=== PATIENT | male | born 1965 | race African-American/Black ===

== ENCOUNTER 2018-01-29 22:17 | Observation (INO) | payer OTHER ==
--- NOTE | 2018-01-29 22:34 | PDOC ---
History of Present Illness - General History Source: Patient, Significant Other Exam Limitations: No Limitations - History of Present Illness Initial Comments: 01/29/18 23:04 The patient is a 52 year old male with a significant PMH of diabetes, hypertension and pancreatic ca who presents to the emergency department with blurry vision since earlier today. The patient reports that he was at home alone today when he experienced a sudden onset of blurry vision. He describes his episode as flashing red lights. The patient reports some associated confusion with his blurry vision. As per girlfriend at bedside, the patient was also experiencing some associated unsteady gait as well. The patient states that his symptoms began with some left eye pain as well as tooth pain. He states that he has a dental surgery appointment in 5 days. The patient also reports some progressive weight loss. He denies any other complaints. He denies any fever, chills, nausea, vomit, diarrhea, constipation or urinary symptoms. He denies any chest pain, shortness of breath, headache and dizziness. The patient denies any other complaints. PCP: Dr. Valdes <Wilmer Mcintosh - Last Filed: 01/29/18 23:53> <Crystal Joseph - Last Filed: 01/30/18 01:01> - General Stated Complaint: EYE PAIN Time Seen by Provider: 01/29/18 22:25 Past History <Wilmer Mcintosh - Last Filed: 01/29/18 23:53> <Crystal Joseph - Last Filed: 01/30/18 01:01> - Past Medical History Allergies/Adverse Reactions: Allergies Allergy/AdvReac Type Severity Reaction Status Date / Time No Known Allergies Allergy Verified 01/29/18 22:36 Review of Systems - Review of Systems Able to Perform ROS?: Yes Comments:: 01/29/18 23:04 GENERAL/CONSTITUTIONAL: No fever or chills. No weakness. HEAD, EYES, EARS, NOSE AND THROAT:(+)blurry vision . No ear pain or discharge. No sore throat. CARDIOVASCULAR: No chest pain or shortness of breath. RESPIRATORY: No cough, wheezing, or hemoptysis. GASTROINTESTINAL: No nausea, vomiting, diarrhea or constipation. GENITOURINARY: No dysuria, frequency, or change in urination. MUSCULOSKELETAL: No joint or muscle swelling or pain. No neck or back pain. SKIN: No rash NEUROLOGIC: (+)confusion. No headache, vertigo, loss of consciousness, or change in strength/sensation. ENDOCRINE: (+)weight loss. No increased thirst. HEMATOLOGIC/LYMPHATIC: No anemia, easy bleeding, or history of blood clots. ALLERGIC/IMMUNOLOGIC: No hives or skin allergy. <Wilmer Mcintosh - Last Filed: 01/29/18 23:53> *Physical Exam - Vital Signs Last Vital Signs Temp Pulse Resp BP Pulse Ox 98.5 F 72 18 165/98 100 01/29/18 22:32 01/29/18 22:32 01/29/18 22:32 01/29/18 22:32 01/29/18 22:32 - Physical Exam Comments: 01/29/18 23:04 GENERAL: Awake, alert, and fully oriented, in no acute distress HEAD: No signs of trauma EYES: PERRLA, EOMI, sclera anicteric, conjunctiva clear ENT: (+) a lot of dental caries and eroded teeth. Auricles normal inspection, hearing grossly normal, nares patent, oropharynx clear without exudates. Moist mucosa NECK: Normal ROM, supple, no lymphadenopathy, JVD, or masses LUNGS: Breath sounds equal, clear to auscultation bilaterally. No wheezes, and no crackles HEART: Regular rate and rhythm, normal S1 and S2, no murmurs, rubs or gallops ABDOMEN: Soft, nontender, normoactive bowel sounds. No guarding, no rebound. No masses EXTREMITIES: Normal range of motion, no edema. No clubbing or cyanosis. No cords, erythema, or tenderness NEUROLOGICAL: Cranial nerves II through XII grossly intact. Normal speech, normal gait SKIN: Warm, Dry, normal turgor, no rashes or lesions noted. <Wilmer Mcintosh - Last Filed: 01/29/18 23:53> ED Treatment Course - LABORATORY CBC & Chemistry Diagram: 01/29/18 23:00 01/29/18 23:00 <Wilmer Mcintosh - Last Filed: 01/29/18 23:53> - LABORATORY CBC & Chemistry Diagram: 01/29/18 23:00 01/29/18 23:00 <Crystal Joseph - Last Filed: 01/30/18 01:01> Medical Decision Making - Medical Decision Making 01/29/18 23:43 Pt has a normal head CT. He will be admitted for uncontrolled DM. <Crystal Joseph - Last Filed: 01/30/18 01:01> *DC/Admit/Observation/Transfer - Attestations Scribe Attestion: 01/29/18 23:04 Documentation prepared by Wilmer Mcintosh, acting as medical records technician for Crystal Joseph MD. <Wilmer Mcintosh - Last Filed: 01/29/18 23:53> - Discharge Dispostion Decision to Admit order: Yes <Crystal Joseph - Last Filed: 01/30/18 01:01> Diagnosis at time of Disposition: TIA (transient ischemic attack), Uncontrolled diabetes mellitus - Discharge Dispostion Condition at time of disposition: Guarded - Referrals Referrals: Ana Valdes MD [Primary Care Provider] - - Patient Instructions - Post Discharge Activity
--- NOTE | 2018-01-29 22:37 | PDOC ---
NIH Stroke Scale - Last Known Well Date/Time & Onset Date Last Known Well: 01/29/18 Time Last Known Well: 09:00 - Initial Evaluation Level of consciousness: Alert Ask patient the month and their age: Answers both correctly Ask patient to open & close eyes; make fist and let go: Obeys both correctly Best gaze (horizontal eye movement): Normal Visual field testing: Partial hemianopia Facial paresis (Show teeth/raise eyebrows/close eyes tight): Normal symmetrical movement Motor Function: Left Arm: Normal Motor Function: Right Arm: Normal (extends arm 90 (or 45) degrees for 10 seconds without drift Motor Function: Left Leg: Normal (extends leg 30 degrees for 5 seconds without drift) Motor Function: Right Leg: Normal (extends leg 30 degrees for 5 seconds without drift) Limb Ataxia: No ataxia Sensory(Use pinprick test arms,legs,trunk,face/side to side): Normal Best language (Describe picture, name items, read sentences): No Aphasia Dysarthria (read several words): Normal articulation Extinction and Inattention: No abnormality - Total Score NIH Stroke Scale Score: 1
[2018-01-29] MEDS ORDERED: INSULIN REGULAR HUMAN 100 UNITS/ML *VIAL ONE (22:43)
[2018-01-29] MEDS ORDERED: SODIUM CHLORIDE 0.9% 500 ML INFUS.BAG IV ONE (23:00)
[2018-01-29] MEDS ORDERED: INSULIN (NOVOLOG) ASPART 100 UNITS/ML 10ML VIAL SQ ONE (23:15)
[2018-01-29 23:16] LABS: BASO % 1.4 % (0-2.0); EOS % 1.8 % (0-4.5); HEMATOCRIT 34.6 % (35.4-49); HEMOGLOBIN 11.6 GM/dL (11.7-16.9); LYMPH % 33.9 % (8-40); MCH 28.9 pg (25.7-33.7); MCHC 33.4 g/dl (32.0-35.9); MEAN CELL VOLUME 86.5 fl (80-96); MONO % 6.7 % (3.8-10.2); NEUT % 56.2 % (42.8-82.8); PLATELET COUNT 299 K/MM3 (134-434); RDW 13.6 % (11.9-15.9); WHITE BLOOD COUNT 6.3 K/mm3 (4.0-10.0)
[2018-01-29 23:30] LABS: INR 0.96 (0.83-1.09); PROTHROMBIN TIME (PATIENT) 10.9 SEC (9.7-13.0)
[2018-01-29 23:50] LABS: ALBUMIN 3.6 g/dl (3.4-5.0); ALK PHOS 112 U/L (45-117); ANION GAP 8 MMOL/L (8-16); BILIRUBIN,TOTAL 0.4 mg/dL (0.2-1); BLOOD UREA NITROGEN 4 mg/dL (7-18); CALCIUM 8.6 mg/dL (8.5-10.1); CHLORIDE 96 mmol/L (98-107); CO2 27 mmol/L (21-32); CREATININE 0.8 mg/dL (0.55-1.3); POTASSIUM 3.6 mmol/L (3.5-5.1); SGOT/AST 16 U/L (15-37); SGPT/ALT 19 U/L (13-61); SODIUM 130 mmol/L (136-145); TOT PROT 6.7 g/dl (6.4-8.2)
[2018-01-29 23:54] LABS: GLUCOSE,RANDOM 406 mg/dL (74-106)
[2018-01-29] MEDS ORDERED: POTASSIUM CHLORIDE TABS 20 MEQ TABLET.ER (FP) PO ONE (23:56)
[2018-01-29] MEDS ORDERED: MAGNESIUM SULF 50% (8.12 MEQ/2 ML-1 GM VIAL) IVPB ONE (23:57)
[2018-01-30] MEDS ORDERED: SODIUM CHLORIDE 0.9% 500 ML INFUS.BAG IV ONE (00:01)
[2018-01-30] MEDS ORDERED: MAGNESIUM 1GM/D5W - 2 GM/200 ML IVPB IVPB ONE (00:11)
[2018-01-30] MEDS ORDERED: POTASSIUM CHLORIDE TABS 20 MEQ TABLET.ER (FP) PO ONE (00:11)
--- NOTE | 2018-01-30 01:04 | PN ---
Teaching Attending Note Name of Resident: Harshil Adan ATTENDING PHYSICIAN STATEMENT I saw and evaluated the patient. I reviewed the resident's note and discussed the case with the resident. I agree with the resident's findings and plan as documented. SUBJECTIVE: Patient is a 52 year old man with a significant PMH of NIDDM, HTN and pancreatic cancer who presents to the ER with complaint of blurry vision since earlier today. Says he was at home alone today when he experienced a sudden onset of blurry vision. He describes his episode as flashing red lights. There was associated confusion with his blurry vision. As per girlfriend at bedside, the patient was also experiencing some associated unsteady gait as well. The patient states that his symptoms began with some left eye pain as well as tooth pain. He states that he has a dental surgery appointment in 5 days. The patient also reports some progressive unintended weight loss. He denies any fever, chills, nausea, vomit, diarrhea, constipation, chest pain, shortness of breath, headache or dizziness. OBJECTIVE: Alert and very weak Vital Signs Period Temp Pulse Resp BP Sys/Zepeda Pulse Ox Last 24 Hr 98.4 F-98.5 F 72-81 16-18 165-165/98-98 100-100 HEENT: No Jaundice, eye redness or discharge, PERRLA, bilateral hemianopsia, cataracts, decreased vision; fundi not visualized; Poor dentition. Normocephalic , atraumatic. External ears are normal and hearing is grossly intact. No nasal discharge. Neck: Supple, nontender. No palpable adenopathy or thyromegaly. No JVD Chest: Good effort. Clear to auscultation and percussion. Heart: Regular. No S3, rub or murmur Abdomen: Not distended, soft, nontender and no HSM. No rebound or guarding. Normoactive bowel sounds. Ext: Peripheral pulses intact. No leg edema. Skin: Warm and dry. No petechiae, rash or ecchymosis. Neuro: Alert. Oriented x3. CN 2-12 grossly intact. Sensation grossly intact in all four extremities and DTR are symmetric. Slow gait. Plantar reflexes are flexor. Abnormal Lab Results 01/29/18 01/29/18 23:00 23:00 Hgb 11.6 L Hct 34.6 L Sodium 130 L Chloride 96 L BUN 4 L Random Glucose 406 H* ASSESSMENT AND PLAN: 1. TIA - Though his visual symptoms may be due to diabetic retinopathy, we are concerned about arterial occlusion or retinal pathology. Will consult opthalmology stat. Get brain MRI, carotid doppler, ECHO, fasting lipids, swallow evaluation, PT consult, fall precautions and implement permissive hypertension pending brain MRI. Getting Aspirin and Statin. Neurology consult. Hyponatremia most likely due to hyperglycemia. Will correct hyperglycemia and restrict free water intake. 2. Uncontrolled DM - For now, we will hold the home diabetes drugs and implement sliding scale insulin regimen. Provide comprehensive diabetes care with patient teaching and counseling about the importance of euglycemia, eye care and foot care. 3. Anemia - Etiology unclear. Will do basic anemia work up including serial stool guaiacs, reticulocyte count and iron studies. 4. Tobacco Use We will provide patient all the necessary assistance to facilitate smoking cessation and prescribe Nicotine patch. 5. DVT prophylaxis - Lovenox 40 mg SQ q 24 hours. 6. Advance directives - Full code
--- NOTE | 2018-01-30 02:20 | HP ---
CHIEF COMPLAINT: L eye pain with vision changes PCP: Dr. Ana Valdes HISTORY OF PRESENT ILLNESS: Pt is a 52 M with PMH sig for HTN, IDDM (poorly controlled), diabetic neuropathy , iron-deficiency anemia (not on therapy), and pancreatic CA (dx in 2013, got chemo and radiation) who presented to ED with complaint of vision changes and headache. Pt states that 3 days ago, he began experiencing blurry vision in both eyes as well as flashing lights in his left eye only. These changes came on rather suddenly and have persisted constantly since. Pt also describes a R headache that came on subsequent to the left eye visual changes. The headache extends upward from the right judaism and includes the R eye. Pt's fiancee was present at bedside and describes an event yesterday afternoon during which the patient became confused while standing in his kitchen. He was apparently unable to find his way out of the kitchen. The patient states he remembers this and was confused about where he was at that time. Presently, pt continues to have vision changes as well as a headache. He is no longer confused. No other complaints. Note: meds reviewed with patient. ER course was notable for: (1) Hb 11, Na 130, glc 406 (2) Head CT neg (3) Recent Travel: denies PAST MEDICAL HISTORY: HTN, IDDM, peripheral neuropathy, Fe deficiency anemia, pancreatic CA PAST SURGICAL HISTORY: L ?quadriceps tendon repair Social History: Smoking: current smoker. 3 cig/day since 29 y/o Alcohol: social Drugs: denies Family History: leukemia in mother, unknown cancer in father, brain aneurysm and CABG x2 in father Allergies No Known Allergies Allergy (Verified 01/30/18 01:01) HOME MEDICATIONS: Home Medication List Medication Instructions Recorded Confirmed Type Captopril 12.5 mg PO DAILY 01/30/18 01/30/18 History Gabapentin 900 mg PO DAILY 01/30/18 01/30/18 History Insulin (LOG) Aspart [NovoLOG -] 10 unit SQ ACHS 01/30/18 01/30/18 History Insulin Glargine,Hum.rec.anlog 28 unit SQ HS 01/30/18 01/30/18 History [Lantus (10mL VIAL) -] Lipase/Protease/Amylase [Leopoldo Hairston 1 cap PO DAILY 01/30/18 01/30/18 History 24,000 Units Capsule] Quetiapine Fumarate [Seroquel -] 250 mg PO DAILY 01/30/18 01/30/18 History REVIEW OF SYSTEMS CONSTITUTIONAL: Absent: fever, chills, diaphoresis, generalized weakness, malaise, loss of appetite, weight change HEENT: eye pain, visual changes Absent: rhinorrhea, nasal congestion, throat pain, throat swelling, difficulty swallowing, mouth swelling, ear pain, CARDIOVASCULAR: Absent: chest pain, syncope, palpitations, irregular heart rate, lightheadedness , peripheral edema RESPIRATORY: Absent: cough, shortness of breath, dyspnea with exertion, orthopnea, wheezing, stridor, hemoptysis GASTROINTESTINAL: Absent: abdominal pain, abdominal distension, nausea, vomiting, diarrhea, constipation, melena, hematochezia GENITOURINARY: Absent: dysuria, frequency, urgency, hesitancy, hematuria, flank pain, genital pain MUSCULOSKELETAL: Absent: myalgia, arthralgia, joint swelling, back pain, neck pain SKIN: Absent: rash, itching, pallor HEMATOLOGIC/IMMUNOLOGIC: Absent: easy bleeding, easy bruising, lymphadenopathy, frequent infections ENDOCRINE: Absent: unexplained weight gain, unexplained weight loss, heat intolerance, cold intolerance NEUROLOGIC: mental status changes Absent: headache, focal weakness or paresthesias, dizziness, unsteady gait, seizure, , bladder or bowel incontinence PSYCHIATRIC: Absent: anxiety, depression, suicidal or homicidal ideation, hallucinations. PHYSICAL EXAMINATION Vital Signs - 24 hr 01/29/18 01/29/18 22:32 23:11 Temperature 98.5 F 98.4 F Pulse Rate 72 Pulse Rate [ 81 Left Radial] Respiratory 18 16 Rate Blood Pressure 165/98 Blood Pressure 165/98 [Right Arm] O2 Sat by Pulse 100 100 Oximetry (%) GENERAL: Awake, alert, and fully oriented, in no acute distress. HEAD: Normal with no signs of trauma. EYES: Pupils equal, round and reactive to light, extraocular movements intact, sclera anicteric, conjunctiva clear. No lid lag. decreased visual acuity from normal. Homonomous L hemianopsia ?without macular sparing. Ophthomologic exam unrevealing. No red reflex. Retina not visualized. EARS, NOSE, THROAT: Ears normal, nares patent, oropharynx clear without exudates. Moist mucous membranes. NECK: Normal range of motion, supple without lymphadenopathy, JVD, or masses. LUNGS: Breath sounds equal, clear to auscultation bilaterally. No wheezes, and no crackles. No accessory muscle use. HEART: Regular rate and rhythm, normal S1 and S2 without murmur, rub or gallop. ABDOMEN: Soft, nontender, not distended, normoactive bowel sounds, no guarding, no rebound, no masses. No hepatomegaly or splenomegaly. MUSCULOSKELETAL: Normal range of motion at all joints. No bony deformities or tenderness. No CVA tenderness. UPPER EXTREMITIES: 2+ pulses, warm, well-perfused. No cyanosis. No clubbing. No peripheral edema. LOWER EXTREMITIES: 2+ pulses, warm, well-perfused. No calf tenderness. No peripheral edema. NEUROLOGICAL: decreased vision. Cranial nerves II-XII intact. Normal speech. Normal gait. PSYCHIATRIC: Cooperative. Good eye contact. Appropriate mood and affect. SKIN: Warm, dry, normal turgor, no rashes or lesions noted, normal capillary refill. Laboratory Results - last 24 hr 01/29/18 01/29/18 01/29/18 23:00 23:00 23:00 WBC 6.3 RBC 4.00 Hgb 11.6 L Hct 34.6 L MCV 86.5 MCH 28.9 MCHC 33.4 RDW 13.6 Plt Count 299 MPV 8.0 Absolute Neuts (auto) 3.6 Neutrophils % 56.2 Lymphocytes % 33.9 Monocytes % 6.7 Eosinophils % 1.8 Basophils % 1.4 Nucleated RBC % 0 PT with INR INR PTT (Actin FS) 29.5 Sodium 130 L Potassium 3.6 Chloride 96 L Carbon Dioxide 27 Anion Gap 8 BUN 4 L Creatinine 0.8 Creat Clearance w eGFR > 60 POC Glucometer Random Glucose 406 H* Calcium 8.6 Total Bilirubin 0.4 AST 16 ALT 19 Alkaline Phosphatase 112 Total Protein 6.7 Albumin 3.6 Acetone, Qual Blood Type Antibody Screen 01/29/18 01/29/18 01/29/18 23:00 23:00 23:00 WBC RBC Hgb Hct MCV MCH MCHC RDW Plt Count MPV Absolute Neuts (auto) Neutrophils % Lymphocytes % Monocytes % Eosinophils % Basophils % Nucleated RBC % PT with INR 10.90 INR 0.96 PTT (Actin FS) Sodium Potassium Chloride Carbon Dioxide Anion Gap BUN Creatinine Creat Clearance w eGFR POC Glucometer Random Glucose Calcium Total Bilirubin AST ALT Alkaline Phosphatase Total Protein Albumin Acetone, Qual Positive small 1+ Blood Type O POSITIVE Antibody Screen Negative 01/30/18 00:19 WBC RBC Hgb Hct MCV MCH MCHC RDW Plt Count MPV Absolute Neuts (auto) Neutrophils % Lymphocytes % Monocytes % Eosinophils % Basophils % Nucleated RBC % PT with INR INR PTT (Actin FS) Sodium Potassium Chloride Carbon Dioxide Anion Gap BUN Creatinine Creat Clearance w eGFR POC Glucometer [phone] Random Glucose Calcium Total Bilirubin AST ALT Alkaline Phosphatase Total Protein Albumin Acetone, Qual Blood Type Antibody Screen ASSESSMENT/PLAN: Pt is a 52 y/o M with hx poorly controlled IDDM, HTN who presents to ED with complaint of visual changes and headache with episode of confusion. #TIA/CVA r/o -persistent symptoms including homonomous hemianopsia -Head CT neg -Brain MRI (pt will require mild sedation for study) -carotid U/S -lipids -neuro consult -ophthomology consult #IDDM -ISS -BGM #HTN -resume captopril #Neuropathy -resume gabapenting #Hx pancreatic CA -c/w home creon #FEN -NS 75 -hyponatremia -NPO until speech and swallow eval #PPx -lovenox #Dispo -tele obs Rah Kingsley MD PGY-2 IM Visit type - Emergency Visit Emergency Visit: Yes ED Registration Date: 01/30/18 Care time: The patient presented to the Emergency Department on the above date and was hospitalized for further evaluation of their emergent condition. - New Patient This patient is new to me today: Yes Date on this admission: 01/30/18 - Critical Care Critical Care patient: No Hospitalist Screening - Colonoscopy Questionnaire Colonoscopy Questionnaire: Colonoscopy Questionnaire - Patient: 50 - 75 years old and never had a screening colonoscopy: Unknown History of colon or rectal polyps, or CA: Unknown History of IBD, Crohn's disease or UC: Unknown History of abdominal radiation therapy as a child: Unknown - Relative: 1 with colon or rectal CA, or polyps at age 60 or younger: Unknown Colon or rectal CA diagnosed at age 45 or younger: Unknown Multiple relatives with colon or rectal CA: Unknown - Outcome: Screening Result: Negative Screen
[2018-01-30] MEDS: SODIUM CHLORIDE 1,000 ML IV SCH (02:55)
[2018-01-30] MEDS ORDERED: LORazepam 2 MG/ML SDV VIAL IVPUSH ONE (03:03)
[2018-01-30] MEDS: INSULIN SLIDING SCALE (NOVOLOG) 1 VIAL SQ SCH ×4 (07:46→23:15)
[2018-01-30 08:13] LABS: EOS % 2.2 % (0-4.5); HEMATOCRIT 32.8 % (35.4-49); HEMOGLOBIN 10.8 GM/dL (11.7-16.9); LYMPH % 44.1 % (8-40); MCH 28.4 pg (25.7-33.7); MEAN CELL VOLUME 86.1 fl (80-96); MEAN PLT VOLUME 7.8 fl (7.5-11.1); MONO % 7.9 % (3.8-10.2); NEUT % 44.8 % (42.8-82.8); PLATELET COUNT 283 K/MM3 (134-434); RDW 13.5 % (11.9-15.9); WHITE BLOOD COUNT 6.4 K/mm3 (4.0-10.0)
--- NOTE | 2018-01-30 08:39 | PN ---
Progress Note (short form) - Note Progress Note: Unable to see clearly - both eyes- flashes of light Vital Signs - 24 hr 01/29/18 01/29/18 01/30/18 22:32 23:11 02:56 Temperature 98.5 F 98.4 F 98.2 F Pulse Rate 72 Pulse Rate [ 81 70 Left Radial] Pulse Rate [ Right side Sitting] Pulse Rate [ Right side Standing] Pulse Rate [ Right side Supine] Respiratory 18 16 16 Rate Blood Pressure 165/98 Blood Pressure 165/98 135/94 [Right Arm] Blood Pressure [Right side Sitting] Blood Pressure [Right side Standing] Blood Pressure [Right side Supine] O2 Sat by Pulse 100 100 100 Oximetry (%) 01/30/18 01/30/18 01/30/18 03:10 03:11 05:44 Temperature Pulse Rate Pulse Rate [ Left Radial] Pulse Rate [ 81 Right side Sitting] Pulse Rate [ 87 Right side Standing] Pulse Rate [ 77 Right side Supine] Respiratory 16 Rate Blood Pressure Blood Pressure [Right Arm] Blood Pressure 131/100 [Right side Sitting] Blood Pressure 120/86 [Right side Standing] Blood Pressure 134/103 [Right side Supine] O2 Sat by Pulse 97 Oximetry (%) 01/30/18 06:22 Temperature 98.3 F Pulse Rate 66 Pulse Rate [ Left Radial] Pulse Rate [ Right side Sitting] Pulse Rate [ Right side Standing] Pulse Rate [ Right side Supine] Respiratory 16 Rate Blood Pressure 128/85 Blood Pressure [Right Arm] Blood Pressure [Right side Sitting] Blood Pressure [Right side Standing] Blood Pressure [Right side Supine] O2 Sat by Pulse Oximetry (%) Current Medications Generic Name Dose Route Start Last Admin Trade Name Erwinq PRN Reason Stop Dose Admin Aspirin 325 mg 01/30/18 10:00 Ecotrin - PO DAILY SANTANA Enoxaparin Sodium 40 mg 01/30/18 10:00 Lovenox - SQ DAILY SANTANA Gabapentin 900 mg 01/30/18 10:00 Neurontin - PO DAILY [facility] Sodium Chloride 1,000 mls @ 75 mls/hr 01/30/18 02:30 01/30/18 02:55 Normal Saline - IV 75 mls/hr ASDIR SANTANA Administration Insulin Aspart 1 vial 01/30/18 07:00 01/30/18 07:46 Novolog Vial Sliding Scale - SQ Not Given ACHS [facility] Protocol Lisinopril 5 mg 01/30/18 10:00 Prinivil PO DAILY [facility] Non-Formulary Medication 1 cap 01/30/18 10:00 Lipase/Protease/Amylase [Leopoldo Dr 24,000 Units Capsule] PO DAILY [facility] Quetiapine Fumarate 200 mg/ 250 mg 01/30/18 10:00 Quetiapine Fumarate 50 mg PO DAILY [facility] Laboratory Results - last 24 hr 01/29/18 01/29/18 01/29/18 23:00 23:00 23:00 WBC 6.3 RBC 4.00 Hgb 11.6 L Hct 34.6 L MCV 86.5 MCH 28.9 MCHC 33.4 RDW 13.6 Plt Count 299 MPV 8.0 Absolute Neuts (auto) 3.6 Neutrophils % 56.2 Lymphocytes % 33.9 Monocytes % 6.7 Eosinophils % 1.8 Basophils % 1.4 Nucleated RBC % 0 PT with INR INR PTT (Actin FS) 29.5 Sodium 130 L Potassium 3.6 Chloride 96 L Carbon Dioxide 27 Anion Gap 8 BUN 4 L Creatinine 0.8 Creat Clearance w eGFR > 60 POC Glucometer Random Glucose 406 H* Calcium 8.6 Total Bilirubin 0.4 AST 16 ALT 19 Alkaline Phosphatase 112 Total Protein 6.7 Albumin 3.6 Acetone, Qual Blood Type Antibody Screen 01/29/18 01/29/18 01/29/18 23:00 23:00 23:00 WBC RBC Hgb Hct MCV MCH MCHC RDW Plt Count MPV Absolute Neuts (auto) Neutrophils % Lymphocytes % Monocytes % Eosinophils % Basophils % Nucleated RBC % PT with INR 10.90 INR 0.96 PTT (Actin FS) Sodium Potassium Chloride Carbon Dioxide Anion Gap BUN Creatinine Creat Clearance w eGFR POC Glucometer Random Glucose Calcium Total Bilirubin AST ALT Alkaline Phosphatase Total Protein Albumin Acetone, Qual Positive small 1+ Blood Type O POSITIVE Antibody Screen Negative 01/30/18 01/30/18 01/30/18 00:19 05:50 07:36 WBC 6.4 RBC 3.80 L Hgb 10.8 L Hct 32.8 L MCV 86.1 MCH 28.4 MCHC 33.0 RDW 13.5 Plt Count 283 MPV 7.8 Absolute Neuts (auto) 2.8 Neutrophils % 44.8 D Lymphocytes % 44.1 H D Monocytes % 7.9 Eosinophils % 2.2 Basophils % 1.0 Nucleated RBC % 0 PT with INR INR PTT (Actin FS) Sodium Potassium Chloride Carbon Dioxide Anion Gap BUN Creatinine Creat Clearance w eGFR POC Glucometer [phone] Random Glucose Calcium Total Bilirubin AST ALT Alkaline Phosphatase Total Protein Albumin Acetone, Qual Blood Type Antibody Screen S1 S2 RRR Lungs clear Abd- soft, NT No edema AAOx3, moves all extremities PLAN For MRI today , carotid doppler Neurology eval Check A1C may resume diet R/O Optic Neuritis Hospitalist spoke with Contact Center Engineer - who recommended outpt follow up, no emergent interventions at this time Problem List - Problems (1) Pancreatic cancer Code(s): C25.9 - MALIGNANT NEOPLASM OF PANCREAS, UNSPECIFIED (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
[2018-01-30] MEDS ORDERED: diazePAM 5 MG TABLET PO ONE ×2 (08:40→14:15)
[2018-01-30 08:42] LABS: ALBUMIN 3.1 g/dl (3.4-5.0); ALK PHOS 104 U/L (45-117); ANION GAP 9 MMOL/L (8-16); BILIRUBIN,TOTAL 0.2 mg/dL (0.2-1); BLOOD UREA NITROGEN 3 mg/dL (7-18); CALCIUM 8.2 mg/dL (8.5-10.1); CHLORIDE 103 mmol/L (98-107); CO2 25 mmol/L (21-32); CREATININE 0.6 mg/dL (0.55-1.3); MAGNESIUM 1.9 mg/dL (1.8-2.4); PHOSPHOROUS 2.6 mg/dL (2.5-4.9); POTASSIUM 3.7 mmol/L (3.5-5.1); SGOT/AST 36 U/L (15-37); SGPT/ALT 20 U/L (13-61); SODIUM 138 mmol/L (136-145); TOT PROT 5.7 g/dl (6.4-8.2)
[2018-01-30 08:52] LABS: GLUCOSE,RANDOM 397 mg/dL (74-106)
[2018-01-30 09:06] LABS: INR 0.98 (0.83-1.09); PROTHROMBIN TIME (PATIENT) 11.1 SEC (9.7-13.0)
[2018-01-30] MEDS ORDERED: QUEtiapine FUMARATE 200 MG TABLET PO SCH (10:00)
[2018-01-30] MEDS ORDERED: PATIENT'S OWN MEDICATION (NON-FORMULARY) (Lipase/Protease/Amylase [Creon Dr 24,000 Units C PO SCH (10:00)
[2018-01-30] MEDS: ENOXAPARIN NA (PORCINE) 40 MG/0.4 ML DISP.SYRIN SQ SCH (10:42)
[2018-01-30] MEDS: GABAPENTIN 300 MG CAPSULE (FP) PO SCH (10:43)
[2018-01-30] MEDS: QUETIAPINE FUMARATE 200 MG, QUETIAPINE FUMARATE 50 MG PO SCH (10:43)
[2018-01-30] MEDS: LISINOPRIL 5 MG TABLET (FP) PO SCH (10:43)
[2018-01-30] MEDS: ASPIRIN 325 MG ENTERIC COATED TABLET (FP) PO SCH (10:45)
--- NOTE | 2018-01-30 12:22 | CON.NEURO ---
Consult Consult Specialty:: Pérez Referred by:: ED - History of Present Illness History of Present Illness: 52 years old man with PMH HTN, IDDM (poorly controlled), diabetic neuropathy, iron-deficiency anemia (not on therapy), and pancreatic CA (dx in 2013, got chemo and radiation) presented with blurry vision I saw the patient on liana tele No fall no eye trauma Complaints of sever eye pain No symptoms on liana left eye - History Source History Provided By: Patient, Medical Record Limitations to Obtaining History: No Limitations - Smoking History Smoking history: Current every day smoker Have you smoked in the past 12 months: Yes Home Medications - Allergies Allergies/Adverse Reactions: Allergies Allergy/AdvReac Type Severity Reaction Status Date / Time No Known Allergies Allergy Verified 01/30/18 01:01 - Home Medications Home Medications: Ambulatory Orders Captopril 12.5 mg PO DAILY 01/30/18 Gabapentin 900 mg PO DAILY 01/30/18 Insulin (LOG) Aspart [NovoLOG -] 10 unit SQ ACHS 01/30/18 Insulin Glargine,Hum.rec.anlog [Lantus (10mL VIAL) -] 28 unit SQ HS 01/30/18 Lipase/Protease/Amylase [Leopoldo Hairston 24,000 Units Capsule] 1 cap PO DAILY 01/30/18 Quetiapine Fumarate [Seroquel -] 250 mg PO DAILY 01/30/18 Physical Exam-Neuro Vital Signs: Vital Signs Temperature 98.4 F 01/30/18 10:00 Pulse Rate 72 01/30/18 10:00 Respiratory Rate 16 01/30/18 10:00 Blood Pressure 138/73 01/30/18 10:00 O2 Sat by Pulse Oximetry (%) 97 01/30/18 05:44 Labs: CBC, BMP 01/30/18 07:36 01/30/18 07:36 INR, PTT INR 0.98 (0.83-1.09) 01/30/18 07:36 - Neuro Exam Level Of Consciousness: Yes: Oriented to Person, Oriented to Place, Oriented to Time Eyes: Yes: PERRLA Speech: WNL Dominant Hand: Right Cranial Nerves II-XII Intact: Yes Gag: Present DTR's: 1+ Left Bicep, 1+ Right Bicep, 1+ Right Tricep, 1+ Left Brachioradialis Response to light touch: Normal Response to pain prick: Normal Response to temperature: Normal Response to vibration: Normal Motor Strength: 3/5: Left Arm, Right Arm, Left Leg, Right Leg Imaging - Results Cat Scan: Image Reviewed Problem List - Problems (1) Visual changes Assessment/Plan: Rule out Optic Neuritis 1. MRI of liana brain and ON 2. Iv Fluids 3. ESR 4. CRP 5. Optho consult Code(s): H53.9 - UNSPECIFIED VISUAL DISTURBANCE
[2018-01-30 12:59] LABS: CHOLESTEROL 97 mg/dL (50-200); HDL CHOLESTEROL 57 mg/dL (40-60); TRIGLYCERIDES 121 mg/dL (0-150)
[2018-01-30] MEDS: ACETAMINOPHEN 325 MG TABLET (FP) PO PRN (17:39)
[2018-01-30] MEDS ORDERED: PT OWN MED DRAWER 7, Y5N ONE (19:36)
[2018-01-31] MEDS: SODIUM CHLORIDE 1,000 ML IV SCH (05:53)
[2018-01-31] MEDS: INSULIN SLIDING SCALE (NOVOLOG) 1 VIAL SQ SCH ×3 (06:23→16:51)
[2018-01-31] MEDS ORDERED: INSULIN (LEVEMIR) 100 UNITS/ML UNITS SQ SCH ×3 (07:00→11:38)
[2018-01-31] MEDS ORDERED: PT OWN MED DRAWER 7, Y5N ONE (08:53)
[2018-01-31] MEDS: GABAPENTIN 300 MG CAPSULE (FP) PO SCH (09:15)
[2018-01-31] MEDS: ENOXAPARIN NA (PORCINE) 40 MG/0.4 ML DISP.SYRIN SQ SCH (09:15)
[2018-01-31] MEDS: LISINOPRIL 5 MG TABLET (FP) PO SCH (09:16)
[2018-01-31] MEDS: ASPIRIN 325 MG ENTERIC COATED TABLET (FP) PO SCH (09:16)
[2018-01-31] MEDS: QUETIAPINE FUMARATE 200 MG, QUETIAPINE FUMARATE 50 MG PO SCH (09:16)
--- NOTE | 2018-01-31 11:16 | PN ---
Progress Note (short form) - Note Progress Note: Unable to see clearly - both eyes- flashes of light no headaches Vital Signs - 24 hr 01/30/18 01/31/18 01/31/18 22:00 01:20 02:00 Temperature 98.2 F 98.8 F Pulse Rate 78 79 Respiratory 18 18 20 Rate Blood Pressure 167/88 127/72 O2 Sat by Pulse 97 Oximetry (%) 01/31/18 01/31/18 01/31/18 06:00 09:21 10:00 Temperature 98.0 F 98.5 F Pulse Rate 67 75 Respiratory 20 19 19 Rate Blood Pressure 165/96 138/89 O2 Sat by Pulse 99 Oximetry (%) Current Medications Generic Name Dose Route Start Last Admin Trade Name Freq PRN Reason Stop Dose Admin Acetaminophen 650 mg 01/30/18 14:13 01/30/18 17:39 Tylenol - PO 650 mg Q6H PRN Administration PAIN GREATER THAN 5 Aspirin 81 mg 01/31/18 11:38 Ecotrin - PO DAILY [facility] Enoxaparin Sodium 40 mg 01/30/18 10:00 01/31/18 09:15 Lovenox - SQ 40 mg DAILY [facility] Administration Gabapentin 900 mg 01/30/18 10:00 01/31/18 09:15 Neurontin - PO 900 mg DAILY [facility] Administration Insulin Aspart 1 vial 01/31/18 22:00 Novolog Vial Sliding Scale - SQ HS [facility] Protocol Insulin Aspart 1 vial 01/31/18 16:30 Novolog Vial Sliding Scale - SQ TIDAC [facility] Protocol Insulin Detemir 18 units 02/01/18 07:00 Levemir Vial SQ 0700 [facility] Lisinopril 5 mg 01/30/18 10:00 01/31/18 09:16 Prinivil PO 5 mg DAILY [facility] Administration Non-Formulary Medication 1 cap 01/30/18 10:00 Lipase/Protease/Amylase [Leopoldo Hairston 24,000 Units Capsule] PO DAILY [facility] Quetiapine Fumarate 200 mg/ 250 mg 01/30/18 10:00 01/31/18 09:16 Quetiapine Fumarate 50 mg PO 250 mg DAILY [facility] Administration Laboratory Results - last 24 hr 01/30/18 01/30/18 01/30/18 12:00 16:10 22:46 POC Glucometer 283 382 Hemoglobin A1c % 15.7 H 01/31/18 01/31/18 05:43 11:34 POC Glucometer 359 222 Hemoglobin A1c % S1 S2 RRR Lungs clear Abd- soft, NT No edema AAOx3, moves all extremities PLAN MRI - no infarcts Carotid doppler- negative for stenosis Neurology eval noted will consult Endocrinology control blood sugars A1C-15 R/O Optic Neuritis Hospitalist spoke with [employer] Notes Administrator - who recommended outpt follow up, no emergent interventions at this time increase Lisinopril for better BP control dc planning
[2018-01-31] MEDS ORDERED: ASPIRIN 325 MG ENTERIC COATED TABLET (FP) PO SCH (11:38)
--- NOTE | 2018-01-31 14:29 | CONSULT ---
Consult Consult Specialty:: Endocrinology Referred by:: Dr Rebecca Adorno Reason for Consultation:: Hyperglycemia - History of Present Illness Chief Complaint: Blurred vision History of Present Illness: This is a 52 M with h/o HTN, DM since 2010, on Insulin since then, diabetic neuropathy, iron-deficiency anemia (not on therapy), and pancreatic CA (dx in 2013, got chemo and radiation) who presented to ED with complaint of vision changes and headache. Pt states that 3 days ago, he began experiencing blurry vision in both eyes as well as flashing lights in his left eye only. As per yenni the patient became confused while standing in his kitchen a day before admission. He was apparently unable to find his way out of the kitchen. Pt found to be hyperglycemic and referred management. FS at home 200s a per pt. Has occasional hypoglycemia. Month before last he was hospitalized for hypoglycemia. Pt doesn't know name of hospital he was taken to. Has burning of feet off and on. No family h/o DM. Takes Lantus 28 units daily and Humalog 10 units TID as per pt. - History Source History Provided By: Patient, Medical Record Limitations to Obtaining History: Poor Historian - Past Medical History Endocrine: Yes: Diabetes Mellitus - Smoking History Smoking history: Current every day smoker Have you smoked in the past 12 months: Yes Home Medications - Allergies Allergies/Adverse Reactions: Allergies Allergy/AdvReac Type Severity Reaction Status Date / Time No Known Allergies Allergy Verified 01/30/18 01:01 - Home Medications Home Medications: Ambulatory Orders Captopril 12.5 mg PO DAILY 01/30/18 Gabapentin 900 mg PO DAILY 01/30/18 Insulin (LOG) Aspart [NovoLOG -] 10 unit SQ ACHS 01/30/18 Insulin Glargine,Hum.rec.anlog [Lantus (10mL VIAL) -] 28 unit SQ HS 01/30/18 Lipase/Protease/Amylase [Leopoldo Hairston 24,000 Units Capsule] 1 cap PO DAILY 01/30/18 Quetiapine Fumarate [Seroquel -] 250 mg PO DAILY 01/30/18 Family Disease History - Family Disease History Other Family History: No family h/o DM Review of Systems - Review of Systems Constitutional: reports: No Symptoms Eyes: reports: Blurred Vision HENT: reports: No Symptoms Neck: reports: No Symptoms Cardiovascular: reports: No Symptoms Respiratory: reports: No Symptoms Gastrointestinal: reports: No Symptoms Genitourinary: reports: No Symptoms Musculoskeletal: reports: No Symptoms Integumentary: reports: No Symptoms Neurological: reports: No Symptoms Physical Exam Vital Signs: Vital Signs Temperature 98.5 F 01/31/18 09:21 Pulse Rate 75 01/31/18 09:21 Respiratory Rate 19 01/31/18 10:00 Blood Pressure 138/89 01/31/18 09:21 O2 Sat by Pulse Oximetry (%) 99 01/31/18 10:00 Constitutional: Yes: No Distress, Calm Eyes: Yes: Conjunctiva Clear, EOM Intact HENT: Yes: Atraumatic, Normocephalic Neck: Yes: Supple, Trachea Midline Cardiovascular: Yes: Regular Rate and Rhythm Respiratory: Yes: Regular, CTA Bilaterally Gastrointestinal: Yes: Normal Bowel Sounds, Soft Extremities: Yes: WNL Edema: No Neurological: Yes: Alert, Oriented Labs: CBC, BMP 01/30/18 07:36 01/30/18 07:36 Imaging - Results Cat Scan: Report Reviewed (No CT evidence for intracranial hemorrhage) MRI: Report Reviewed (No hemorrhage) Assessment/Plan AP: ?TIA/CVA DM uncontrolled: ?type 1 in view of h/o pancreatic Ca HTN Neuropathy H/O Pancreatic Ca: S/P Chemo and RT, No surgery Nutrition consult Discussed need to control diet. No snacking between meals unless blood sugar is low or he is symptomatic for low blood sugar. BGM QACHS Lantus 20 units daily.Pt says he was taking 26 units daily at HS Got 16 units today, will see how does on the dose. Levemir 18 units in the morning starting tomorrow Will adjust dose as necessary. Novolog SS coverage Will f/u
--- NOTE | 2018-01-31 20:23 | PN ---
Progress Note, Physician History of Present Illness: events noted chart reviewed patient seen on telemetry patient was sleeping I woke him up patient still complains of difficulty with the right eye less intense than yesterday patient complains of diarrhea patient was seen by endocrine specialist. MRI of the brain I reviewed the images with no evidence of demyelinating disease the optic nerves looks fine. ESR was not done. - Current Medication List Current Medications: Active Medications Acetaminophen (Tylenol -) 650 mg PO Q6H PRN PRN Reason: PAIN GREATER THAN 5 Last Admin: 01/30/18 17:39 Dose: 650 mg Aspirin (Ecotrin -) 81 mg PO DAILY [facility] Enoxaparin Sodium (Lovenox -) 40 mg SQ DAILY [facility] Last Admin: 01/31/18 09:15 Dose: 40 mg Gabapentin (Neurontin -) 900 mg PO DAILY [facility] Last Admin: 01/31/18 09:15 Dose: 900 mg Insulin Aspart (Novolog Vial Sliding Scale -) 1 vial SQ HS [facility]; Protocol Insulin Aspart (Novolog Vial Sliding Scale -) 1 vial SQ TIDAC [facility]; Protocol Last Admin: 01/31/18 16:51 Dose: 6 unit Insulin Detemir (Levemir Vial) 18 units SQ 0700 [facility] Lisinopril (Prinivil) 10 mg PO DAILY [facility] Non-Formulary Medication (Lipase/Protease/Amylase [Creon Dr 24,000 Units Capsule ]) 1 cap PO DAILY [facility] Quetiapine Fumarate 200 mg/ (Quetiapine Fumarate 50 mg) 250 mg PO DAILY [facility] Last Admin: 01/31/18 09:16 Dose: 250 mg - Objective Vital Signs: Vital Signs Temperature 98.4 F 01/31/18 14:00 Pulse Rate 73 01/31/18 14:00 Respiratory Rate 20 01/31/18 18:00 Blood Pressure 115/88 01/31/18 14:00 O2 Sat by Pulse Oximetry (%) 99 01/31/18 18:00 Constitutional: Yes: Well Nourished Eyes: Yes: WNL HENT: Yes: WNL Neurological: Yes: Alert, Oriented, Babinski negative ...Motor Strength: WNL Labs: CBC, BMP 01/30/18 07:36 01/30/18 07:36 INR, PTT INR 0.98 (0.83-1.09) 01/30/18 07:36 Problem List - Problems (1) Visual changes Assessment/Plan: no evidence of optic neuritis on the MRI Await ESR Suggest ophthalmology evaluation. patient could leave the telemetry Code(s): H53.9 - UNSPECIFIED VISUAL DISTURBANCE
[2018-01-31] MEDS ORDERED: INSULIN SLIDING SCALE (NOVOLOG) 1 VIAL SQ SCH (22:00)
[2018-02-01] MEDS: ACETAMINOPHEN 325 MG TABLET (FP) PO PRN (02:32)
[2018-02-01] MEDS: INSULIN SLIDING SCALE (NOVOLOG) 1 VIAL SQ SCH ×3 (06:38→17:24)
[2018-02-01] MEDS ORDERED: INSULIN (LEVEMIR) 100 UNITS/ML UNITS SQ SCH ×2 (07:00→22:00)
[2018-02-01] MEDS ORDERED: LISINOPRIL 5 MG TABLET (FP) PO SCH (10:00)
[2018-02-01] MEDS ORDERED: ASPIRIN COATED 81 MG TABLET.EC PO SCH (10:05)
[2018-02-01] MEDS: GABAPENTIN 300 MG CAPSULE (FP) PO SCH (10:11)
[2018-02-01] MEDS ORDERED: PT OWN MED DRAWER 7, Y5N ONE (10:13)
[2018-02-01] MEDS: ENOXAPARIN NA (PORCINE) 40 MG/0.4 ML DISP.SYRIN SQ SCH (10:14)
[2018-02-01] MEDS: QUETIAPINE FUMARATE 200 MG, QUETIAPINE FUMARATE 50 MG PO SCH (10:14)
--- NOTE | 2018-02-01 10:36 | CONSULT ---
Admitting History and Physical - Primary Care Physician PCP: Ana Valdes - Admission History of Present Illness: Pt is a 52 M with PMH sig for HTN, IDDM (poorly controlled), diabetic neuropathy , iron-deficiency anemia (not on therapy), and pancreatic CA (dx in 2013, got chemo and radiation) who presented to ED with complaint of vision changes and headache. Passed Dysphagia screen. Pt is on a Reg diet/thin liquids. - Past Medical History Endocrine: Yes: Diabetes Mellitus - Smoking History Smoking history: Current every day smoker Have you smoked in the past 12 months: Yes History - Admission Reason For Visit: TRANSIENT ISCHEMIC ATTACK - Diagnostics X-ray: Report Reviewed CT Scan: Report Reviewed MRI: Report Reviewed (Severe degenerative changes Right TMJ. Pt reports he needs to gety his right wisdom tooth extracted.) - General Mental Status: Alert and Oriented, Awake and Alert, Able to Follow Commands Attention: Intact Ability to Follow Directions: Good Head/Neck Control: WFL - Hearing Hearing: Normal Speech Evaluation - Communication Primary Language: [id number] Communication: Yes: Within Normal Limits Oral Expression Ability: Yes: No Impairment - Speech Production Able to Make Needs Known: Yes: WNL Intelligibility: Yes: WNL - Speech Characteristics Voice Loudness: Normal Voice Pitch: Yes: Normal Voice Phonatory-based Quality: Yes: Normal Speech Pattern: Normal Speech Clarity: < 100% Nasal Resonance: Normal Articulation: Yes: Precise - Language/Auditory Comprehension Follows: Yes: 2 Stage Simple Commands - Language/Verbal Expression Able to Respond to Simple Queries: Yes: WNL Able to Communicate Wants and Needs: Yes: WNL Functional Communication Status: Yes: WNL - Memory/Perception [facility] Memory: Yes: WNL Short Term Memory: Yes: WNL - Swallow Evaluation/Bedside Assessment Current Nutritional Intake: Regular, Thin Liquids Oral Secretions: Yes: WFL Dentition: Yes: Missing Teeth Facial Symmetry at Rest: Symmetrical Facial Symmetry on Retraction: Symmetrical Facial Movement: Controlled Sensation: Normal Against Resistance Opening: Normal Against Resistance Closing: Normal Pucker Lips: Normal Lingual Movement: Normal Lingual Speed of Movement: Normal Lingual Movement Strgth Against Opposition: Normal Lingual Movement Characteristics: Normal Velopharyngeal Movement: Normal Laryngeal Elevation: WFL Laryngeal Movement: Able to Palpate Rate of Intake: WFL Bolus Size: WFL Labial Seal: WFL Chewing: WFL Oral Prep Time: WFL A-P Transit: WFL Pocketing: None Timing of Swallow: [facility] Coughing/Throat Clear: No Change in Voice: No Recommendations - Speech Evaluation, Impression/Plan Impression: Speech/language/cognition intact. Pt c/o improved but persidtent headache right eye pain/had flashing lights when admitted with headache. Pt with impaired vision at baseline- told he "has cataracts that need to be removed." Pt plans to return to opthamologist. Severe degenerative changes Right TMJ. No clicking/subluxation of mandible reported or observed. Pt reports he "needs to get his right wisdom tooth extracted". Reports occasional cough on thin liquids/rice. Upon review of swallowing behaviors, pt drinks caffienated soda/OJ,eats dinner by 10, reclines after meals. r/o laryngopharyngeal reflux/GERD. - Dysphagia Impressions/Plan Swallowing Skills: [facility] Dysphagia Impressions: Minimal Impairment *Silent aspiration: cannot be R/O at bedside Dysphagia Treatment Plan: OOB for meals, OOB for 1 h. after meals, Other (GERD precautions. Minimize carbonation,citrus,caffiene. Educated pt.) - Recommendations Diet Consistency: Regular Medication Administration: Whole with water Liquids: Thin Liquids
[2018-02-01] MEDS ORDERED: IBUPROFEN 400 MG TABLET (FP) PO PRN (13:04)
--- NOTE | 2018-02-01 13:04 | DS ---
Physical Examination Vital Signs: Vital Signs Temperature 98.1 F 02/01/18 09:52 Pulse Rate 64 02/01/18 09:52 Respiratory Rate 18 02/01/18 09:53 Blood Pressure 162/89 02/01/18 09:52 O2 Sat by Pulse Oximetry (%) 100 02/01/18 09:53 Findings/Remarks: patient seen and examined today sitting in chair chart reviewed Comfortable Wants to go home Neurology follow-up noted Constitutional: Yes: No Distress, Calm Cardiovascular: Yes: Regular Rate and Rhythm Respiratory: Yes: CTA Bilaterally Gastrointestinal: Yes: Soft Edema: No Neurological: Yes: Alert Psychiatric: Yes: Alert Labs: CBC, BMP 01/30/18 07:36 01/30/18 07:36 Discharge Summary Reason For Visit: TRANSIENT ISCHEMIC ATTACK Current Active Problems DM type 1 causing eye disease (Acute) Neuropathy (Acute) Pancreatic cancer (Acute) TIA (transient ischemic attack) (Acute) Visual changes (Acute) Hospital Course: Pt is a 52 M with PMH sig for HTN, IDDM (poorly controlled), diabetic neuropathy , iron-deficiency anemia (not on therapy), and pancreatic CA (dx in 2012, got chemo and radiation) who presented to ED with complaint of vision changes and headache workup negative for acute CVA--- MRI brain unremarkable No evidence of optic neuritis ESR normal Seen by Endo-insulin being adjusted--- 18 units in the morning and 8 units in the evening Patient to see lead printer as outpatient Discussed with patient's family Discharge home today advised to follow up in office in 1 week Patient also strongly advised to follow up with dental surgeon patient in agreement with all above Condition: Improved - Instructions Referrals: Ana Valdes MD [Primary Care Provider] - Disposition: HOME - Home Medications Comprehensive Discharge Medication List: Ambulatory Orders Captopril 12.5 mg PO DAILY 01/30/18 Lipase/Protease/Amylase [Creon Dr 24,000 Units Capsule] 1 cap PO DAILY 01/30/18 Quetiapine Fumarate [Seroquel -] 250 mg PO DAILY 01/30/18 Acetaminophen [Tylenol .Regular Strength -] 650 mg PO Q6H PRN tablet 02/01/18 Aspirin Coated [Ecotrin -] 81 mg PO DAILY tablet.ec 02/01/18 Gabapentin 300 mg PO DAILY #30 cap 02/01/18 Insulin (Levemir) [Levemir Vial] 18 units SQ BID@0700,2200 units 02/01/18 Insulin Sliding Scale [Novolog Vial Sliding Scale -] 1 vial SQ BIDAC #5 units
--- NOTE | 2018-02-01 13:36 | PN ---
Progress Note (short form) - Note Progress Note: No new complaints Vital Signs Period Temp Pulse Resp BP Sys/Zepeda Pulse Ox Last 24 Hr 97 F-98.7 F 64-78 18-20 115-194/73-92 99-100 PE: AOx3 Neck: supple, No JVD HEENT: EOMI Lungs: CTA CVS: S1S2 Abd: Benign Ext: No edema CMP Sodium 138 mmol/L (136-145) 01/30/18 07:36 Potassium 3.7 mmol/L (3.5-5.1) 01/30/18 07:36 Chloride 103 mmol/L (98-107) 01/30/18 07:36 Carbon Dioxide 25 mmol/L (21-32) 01/30/18 07:36 Anion Gap 9 MMOL/L (8-16) 01/30/18 07:36 BUN 3 mg/dL (7-18) L 01/30/18 07:36 Creatinine 0.6 mg/dL (0.55-1.3) 01/30/18 07:36 Creat Clearance w eGFR > 60 (>60) 01/30/18 07:36 POC Glucometer 172 UNITS (80-120) 02/01/18 11:35 Random Glucose 397 mg/dL (74-106) H* 01/30/18 07:36 Hemoglobin A1c % 15.7 % (4.2-6.3) H 01/30/18 12:00 Calcium 8.2 mg/dL (8.5-10.1) L 01/30/18 07:36 Phosphorus 2.6 mg/dL (2.5-4.9) 01/30/18 07:36 Magnesium 1.9 mg/dL (1.8-2.4) 01/30/18 07:36 Total Bilirubin 0.2 mg/dL (0.2-1) 01/30/18 07:36 AST 36 U/L (15-37) 01/30/18 07:36 ALT 20 U/L (13-61) 01/30/18 07:36 Alkaline Phosphatase 104 U/L (45-117) 01/30/18 07:36 Troponin I < 0.02 ng/ml (0.00-0.05) 01/30/18 07:36 Total Protein 5.7 g/dl (6.4-8.2) L 01/30/18 07:36 Albumin 3.1 g/dl (3.4-5.0) L 01/30/18 07:36 Triglycerides 121 mg/dL (0-150) 01/30/18 07:36 Cholesterol 97 mg/dL (50-200) 01/30/18 07:36 Total LDL Cholesterol 29 mg/dL (5-100) 01/30/18 07:36 HDL Cholesterol 57 mg/dL (40-60) 01/30/18 07:36 Vitamin B12 1599 pg/ml (193-986) H 01/30/18 12:52 Current Medications Generic Name Dose Route Start Last Admin Trade Name Freq PRN Reason Stop Dose Admin Acetaminophen 650 mg 01/30/18 14:13 02/01/18 02:32 Tylenol - PO 650 mg Q6H PRN Administration PAIN GREATER THAN 5 Aspirin 81 mg 02/01/18 10:05 02/01/18 10:11 Ecotrin - PO 81 mg DAILY [facility] Administration Enoxaparin Sodium 40 mg 01/30/18 10:00 02/01/18 10:14 Lovenox - SQ 40 mg DAILY [facility] Administration Gabapentin 900 mg 01/30/18 10:00 02/01/18 10:11 Neurontin - PO 900 mg DAILY [facility] Administration Ibuprofen 400 mg 02/01/18 13:04 02/01/18 13:16 Motrin - PO 400 mg Q6H PRN Administration FEVER Insulin Aspart 1 vial 01/31/18 22:00 01/31/18 22:26 Novolog Vial Sliding Scale - SQ 8 units HS [facility] Administration Protocol Insulin Aspart 1 vial 01/31/18 16:30 02/01/18 11:39 Novolog Vial Sliding Scale - SQ 4 unit TIDAC [facility] Administration Protocol Insulin Detemir 18 units 02/01/18 07:00 02/01/18 06:39 Levemir Vial SQ 18 units 0700 [facility] Administration Lisinopril 10 mg 02/01/18 10:00 02/01/18 10:12 Prinivil PO 10 mg DAILY [facility] Administration Non-Formulary Medication 1 cap 01/30/18 10:00 Lipase/Protease/Amylase [Creon Dr 24,000 Units Capsule] PO DAILY [facility] Quetiapine Fumarate 200 mg/ 250 mg 01/30/18 10:00 02/01/18 10:14 Quetiapine Fumarate 50 mg PO 250 mg DAILY [facility] Administration AP: ?TIA/CVA DM uncontrolled: ?type 1 in view of h/o pancreatic Ca HTN Neuropathy H/O Pancreatic Ca: S/P Chemo and RT, No surgery Nutrition consult Discussed need to control diet. No snacking between meals unless blood sugar is low or he is symptomatic for low blood sugar. BGM QACHS Levemir 18 units daily in AM. Add Levemir 8 units daily at HS. Pt says he was taking 26 units daily at HS Will adjust dose as necessary. Novolog SS coverage Will f/u
[2018-02-01 15:04] VITALS: BP 132/79; PULSE 83; TEMP 97.9
[2018-02-01 15:38] VITALS: BMI 22.4
--- NOTE | 2018-02-01 16:51 | ECHO ---
Name: NASIR ISLAS Exam:Adult Echocardiogram Study Date: 02/01/2018 07:41 AM Age: 52 yrs Reason For Study: TIA/CVA Height: 65 in Weight: 140 lb BSA: 1.7 m2 MMode/2D Measurements & Calculations IVSd: 0.88 cm Ao root diam: 3.6 cm LVIDd: 4.6 cm LA dimension: 3.7 cm LVIDs: 2.5 cm ACS: 2.0 cm LVPWd: 0.96 cm IVSs: 1.3 cm LVPWs: 1.2 cm EDV(Teich): 99.3 ml ESV(Teich): 22.3 ml Doppler Measurements & Calculations MV E max sen: 63.2 cm/sec Ao V2 max: 133.0 cm/sec MV A max sen: 86.1 cm/sec Ao max P.1 mmHg MV E/A: 0.73 Ao V2 mean: 90.6 cm/sec Ao mean P.8 mmHg Ao V2 VTI: 28.4 cm TR max sen: 192.5 cm/sec Med Peak E' Sen: 5.3 cm/sec TR max P.9 mmHg Med E/e': 12.0 Lat Peak E' Sen: 7.9 cm/sec Lat E/e': 8.0 Procedure The study was technically adequate with some images being suboptimal in quality. Left Ventricle The left ventricular size, thickness and function are normal. The left ventricular ejection fraction is grossly normal. Ejection Fraction = 60%. Grade I diastolic dysfunction, (abnormal relaxation pattern) . Right Ventricle The right ventricle is normal in size and function. Atria Normal left and right atrial size and function. Mitral Valve The mitral valve is grossly normal. There is trace mitral regurgitation. Tricuspid Valve The tricuspid valve is not well visualized, but is grossly normal. There is mild to moderate tricuspi d regurgitation. Aortic Valve There is mild aortic valve thickening. The aortic valve opens well. The aortic valve is trileaflet. T race aortic regurgitation. Pulmonic Valve The pulmonic valve is not well visualized. Great Vessels The aortic root is normal size. Pericardium/Pleura There is no pericardial effusion. Interpretation Summary There is no comparison study available. No cardiac source of emboli noted. The left ventricular size, thickness and function are normal The right ventricle is normal in size and function. Trace aortic regurgitation. There is mild to moderate tricuspid regurgitation. Grade I diastolic dysfunction, (abnormal relaxation pattern). There is trace mitral regurgitation. Reynold Thomas MD 02/01/2018 04:50 PM
== END 2018-02-01 18:55 | disposition home or self-care (01) ==
LOC: JER 22:17 → JERBED 01-30 01:01 → UNDOADMOB 01-30 02:05 → JERBED 01-30 02:05 → J4S 01-30 04:44
PROVIDERS: ADMIT Internal Medicine; ATTEND Internal Medicine
PROC: 3E033GC Introduction of Other Therapeutic Substance into Peripheral Vein, Percutaneous Approach (ICD-10-PCS; principal; 2018-01-30)
PROC: 3E0337Z Introduction of Electrolytic and Water Balance Substance into Peripheral Vein, Percutaneous Approach (ICD-10-PCS; 2018-01-30)
PROC: 3E013VG Introduction of Insulin into Subcutaneous Tissue, Percutaneous Approach (ICD-10-PCS; 2018-01-30)
PROC: 3E013GC Introduction of Other Therapeutic Substance into Subcutaneous Tissue, Percutaneous Approach (ICD-10-PCS; 2018-01-30)
DX: E11.39 Type 2 diabetes mellitus with other diabetic ophthalmic complication (principal); E11.65 Type 2 diabetes mellitus with hyperglycemia; E11.40 Type 2 diabetes mellitus with diabetic neuropathy, unspecified; H53.8 Other visual disturbances; I10 Essential (primary) hypertension; F17.210 Nicotine dependence, cigarettes, uncomplicated; D50.9 Iron deficiency anemia, unspecified; Z79.84 Long term (current) use of oral hypoglycemic drugs; Z85.07 Personal history of malignant neoplasm of pancreas; Z92.21 Personal history of antineoplastic chemotherapy; Z92.3 Personal history of irradiation
CPT/HCPCS: 36415; 70450-TC; 70551-TC; 80053; 80061; 82009; 82607; 82962; 83036; 83090; 83721; 83735; 84100; 84484; 85025; 85610; 85651; 85730; 86850; 86900; 86901; 93306-TC; 93880-TC; 99284-25; G0378; J7030

== ENCOUNTER → 2018-05-28 | Emergency (ER) | payer OTHER ==
[2018-05-28 11:09] VITALS: BP 0/0; PULSE 0; BMI 23.5
--- NOTE | 2018-05-28 11:34 | PDOC ---
History of Present Illness - General Chief Complaint: Cardiac Arrest Stated Complaint: CARDIAC ARREST Time Seen by Provider: 05/28/18 11:19 History Source: EMS Exam Limitations: Clinical Condition, Intubated, Unresponsive - History of Present Illness Initial Comments: 05/28/18 11:49 52YOM with h/o poorly controlled IDDM, pancreatic CA, HTN, and anemia; was BIBEMS for cardiac arrest. Patient was found down at home in the bathroom beside vomitus by others in his home who called 911. EMS states he has been in PEA for the duration of their care, skin was still warm at the time of their arrival, they started CPR and donned Bradley device, placed RUE PIV and gave 2 rounds of epi, also gave D5 as his FSBG was 60, intubated with a 7.5 ETT. At no time were they able to palpate pulses. Unknown down time. Family/friends are not present and were not able to give history at the scene other than stating the patient had diabetes. Past History - Past Medical History Allergies/Adverse Reactions: Allergies Allergy/AdvReac Type Severity Reaction Status Date / Time No Known Allergies Allergy Verified 05/28/18 10:58 Home Medications: Ambulatory Orders Captopril 12.5 mg PO DAILY 01/30/18 Lipase/Protease/Amylase [Creon Dr 24,000 Units Capsule] 1 cap PO DAILY 01/30/18 Quetiapine Fumarate [Seroquel -] 250 mg PO DAILY 01/30/18 Acetaminophen [Tylenol .Regular Strength -] 650 mg PO Q6H PRN tablet 02/01/18 Aspirin Coated [Ecotrin -] 81 mg PO DAILY tablet.ec 02/01/18 Gabapentin 300 mg PO DAILY #30 cap 02/01/18 Ibuprofen [Motrin -] 400 mg PO Q6H PRN tablet 02/01/18 Insulin (Levemir) [Levemir Vial] 8 units SQ HS units 02/01/18 Insulin (Levemir) [Levemir Vial] 18 units SQ 0700 units 02/01/18 Insulin (Levemir) [Levemir Vial] 18 units SQ BID@0700,2200 units 02/01/18 Insulin Sliding Scale [Novolog Vial Sliding Scale -] 1 vial SQ BIDAC #5 units Anemia: Yes (IRON DEFICIENCY) Cancer: Yes (PANCREATIC CA HAD CHEMO & RT) COPD: No Diabetes: Yes (IDDM) HTN: Yes - Surgical History Abdominal Surgery: Yes - Suicide/Smoking/Psychosocial Hx Smoking History: Unknown if ever smoked Have you smoked in the past 12 months: No Information on smoking cessation initiated: No 'Breaking Loose' booklet given: 01/30/18 Hx Alcohol Use: No Drug/Substance Use Hx: No Substance Use Type: Alcohol Hx Substance Use Treatment: No Review of Systems - Review of Systems Able to Perform ROS?: No (unresponsive) *Physical Exam - Vital Signs Last Vital Signs Temp Pulse Resp BP Pulse Ox 0 L 0/0 L 05/28/18 10:56 05/28/18 10:56 - Physical Exam Comments: 05/28/18 11:52 GENERAL: unconscious, intubated, Bradley device on and CPR ongoing HEENT: pupils fixed and dilated on arrival, no e/o facial or head trauma NECK/BACK: no obvious neck hematoma or other trauma CARDIOVASCULAR: extremities lukewarm, very poor capillary refill, no peripheral/ carotid/femoral pulses LUNGS/RESPIRATORY: nononlabored respirations, lungs CTAB GI/ABDOMEN: symmetric, atraumatic outwardly : wearing diaper EXTREMITIES: LLE anterior thigh surgical scar, IO placed in right proximal tibia SKIN: lukewarm and dry, no jaundice, no rash, no bruising, no skin breakdown, no cuts NEUROLOGICAL: Not alert or oriented, CN II-XII grossly intact, no obvious facial droop, otherwise patient is unable to participate in exam Moderate Sedation - Procedure Monitoring Vital Signs: Procedure Monitoring Vital Signs Temperature Pulse Rate 0 L 05/28/18 10:56 Respiratory Rate Blood Pressure 0/0 L 05/28/18 10:56 O2 Sat by Pulse Oximetry (%) Procedures - Bedside Ultrasound Bedside Ultrasound: Cardiac Remarks: STUDY: Bedside echocardiogram INDICATION: Cardiac arrest FINDINGS: No pericardial effusion, no cardiac activity seen CONCLUSION: As above. Medical Decision Making - Critical Care Time Total Critical Care Time (minutes): 30 Critical Care Statement: The care of this patient involved high complexity decision making to prevent further life threatening deterioration of the patient 's condition and/or to evaluate & treat vital organ system(s) failure or risk of failure. - Medical Decision Making Pt p/w cardiopulmonary arrest. Initial Vital Signs Pulse BP 0 L 0/0 L 05/28/18 10:56 05/28/18 10:56 Exam: As noted in Physical Exam section. POC US: No cardiac activity identified, no femoral pulses seen during pulse check DDX IBNLT: Hypovolemia, hypoxemia, H+ ions (acidosis), hyperkalemia, hypokalemia , hypoglycemia, hypothermia, tamponade, tension PTX, thrombosis (SD or PE), trauma, toxins (e.g. toxic overdose) W/U ordered: FSBG (could not be done as patient had insufficient capillary refill) Procedures done: Dr. Nunez verified ETT placement and placed IO line RLE. 05/28/18 12:21 Patient placed on monitor with defibrillator pads in place. ACLS protocol followed while CPR was administered continuously via Bradley device. Gave epi, D50, bicarb, magnesium, and calcium without change in rhythm on monitor. ROSC is not achieved and the Pt is pronounced at 11:12 pm. Diagnosis on expiration is cardiopulmonary arrest. Fiancee is notified when they arrive here in the ED and questions are answered. Medical examiners office is called and is not taking the case. PCP is called and will complete certificate. Remaining paperwork is completed. *DC/Admit/Observation/Transfer Diagnosis at time of Disposition: Cardiopulmonary arrest - Discharge Dispostion Disposition: - Referrals - Patient Instructions - Post Discharge Activity
--- NOTE | 2018-05-28 11:39 | PDOC ---
Attending Attestation - Resident Resident Name: Gisele Cintron - ED Attending Attestation I have performed the following: I have examined & evaluated the patient, The case was reviewed & discussed with the resident, I agree w/resident's findings & plan, Exceptions are as noted - HPI HPI: 05/28/18 11:54 52yo M hx IDDM, pancreatic ca s/p chemo and radiation 2013, HTN, TIA presents to the ED in cardiac arrest. Per EMS, pt was found face down in the bathroom in a pool of vomitus. EMS was called by an unknown family member who has not come to the ED. Unknown downtime prior to being found down. Per EMS, pt was pulseless , in PEA and asystole throughout since their arrival to the home at 10:20AM. FS in the field was 60, pt was given D10 en route. Pt intubated by EMS, placed on radha and transported to the ED. - Physicial Exam PE: 05/28/18 13:02 GENERAL: unresponsive HEAD: No signs of trauma EYES: pupils fixed and dilated ENT: intubated LUNGS: b/l BS HEART: no cardiac activity auscultated ABDOMEN: Soft, non distended EXTREMITIES: warm, cap refill >2 secs NEUROLOGICAL: poor tone SKIN: Warm, Dry, normal turgor, no rashes or lesions noted. - Critical Care Time Total Critical Care Time: 30 Critical Care Statement: The care of this patient involved high complexity decision making to prevent further life threatening deterioration of the patient 's condition and/or to evaluate & treat vital organ system(s) failure or risk of failure. - Medical Decision Making 05/28/18 13:12 52yo M hx pancreatic ca (not active per fiance), IDDM, HTN presents to the ED with cardiac arrest. On arrival, pt with fixed and dilated pupils, intubated (confirmed good placement via glidescope). Pt was given D50 empirically. CPR was resumed on arrival with palpable femoral pulse with each radha compression. An IO was placed in the L proximal tibia with good flow. Multiple rounds of CPR with epi Q3 mins, D50, calcium, magnesium, bicarb were given empirically with persistent PEA/asystole. End tidal 6. US with no cardiac activity. No dilated RV to suggest PE, and TPA likely to be futile given unknown down time. Due to persistent asystole/PEA with no ROSC and prolonged down time, time of was called at 11:12AM. Pt's colettedarlene Morris arrived to the ED, notified of the . States pt was in [place] last night at 130AM which was the last time she spoke with him. She states he has a daughter who she will notify, but she has to go home to retrieve her number from the pts cell phone. Pt's PMD Dr. Valdes notified of the
[2018-05-28 15:12] VITALS: TEMP 92.8
--- NOTE | 2018-05-30 19:35 | EKG ---
Test Reason : Blood Pressure : / mmHG Vent. Rate : 038 BPM Atrial Rate : 077 BPM P-R Int : 000 ms QRS Dur : 102 ms QT Int : 444 ms P-R-T Axes : 000 077 -42 degrees QTc Int : 352 ms JUNCTIONAL BRADYCARDIA WITH PROBABLE VENTRICULAR ESCAPE COMPLEX POSSIBLE ATRIAL FIBRILLATION WITH SLOW VENTRICULAR RESPONSE LOW VOLTAGE QRS NONSPECIFIC ST AND T WAVE ABNORMALITY ABNORMAL ECG WHEN COMPARED WITH ECG OF 28-MAY-2018 11:09, LIKELY NO SIGNIFICANT CHANGES Confirmed by ARMIDA PARK MD ([id number]) on 05/30/2018 7:35:41 PM Referred By: Confirmed By:ARMIDA PARK MD
--- NOTE | 2018-05-30 19:37 | EKG ---
Test Reason : Blood Pressure : / mmHG Vent. Rate : 064 BPM Atrial Rate : 062 BPM P-R Int : 000 ms QRS Dur : 070 ms QT Int : 354 ms P-R-T Axes : 000 084 -52 degrees QTc Int : 365 ms ATRIAL FIBRILLATION WITH SLOW VENTRICULAR RESPONSE LOW VOLTAGE QRS ABNORMAL ECG WHEN COMPARED WITH ECG OF 28-MAY-2018 11:07, LIKELY NO SIGNIFICANT CHANGES Confirmed by ARMIDA PARK MD ([id number]) on 05/30/2018 7:36:41 PM Referred By: Confirmed By:ARMIDA PARK MD
--- NOTE | 2018-05-30 19:37 | EKG ---
Test Reason : Blood Pressure : / mmHG Vent. Rate : 057 BPM Atrial Rate : 034 BPM P-R Int : 000 ms QRS Dur : 100 ms QT Int : 406 ms P-R-T Axes : 000 078 -22 degrees QTc Int : 395 ms UNDETERMINED RHYTHM POSSIBLE ATRIAL FIBRILLATION WITH SLOW VENTRICULAR RESPONSE VS. JUNCTIONAL BRADYCARDIA WITH ESCAPE RHYTHM LOW VOLTAGE QRS NONSPECIFIC ST AND T WAVE ABNORMALITY ABNORMAL ECG NO PREVIOUS ECGS AVAILABLE Confirmed by VIVIAN PETERSON, ARMIDA ([id number]) on 05/30/2018 7:37:22 PM Referred By: Confirmed By:ARMIDA PARK MD
== END | disposition expired ==
LOC: JER 10:56
DX: I46.9 Cardiac arrest, cause unspecified (principal); E11.9 Type 2 diabetes mellitus without complications; Z85.07 Personal history of malignant neoplasm of pancreas; I10 Essential (primary) hypertension; D64.89 Other specified anemias
CPT/HCPCS: 93005; 93010; 99285-25